=== PATIENT | male | born 1965 | race Caucasian/White ===

== ENCOUNTER 2018-08-06 09:33 | Emergency (ER) | payer BC ==
[~2018-08-06] VITALS: Ht 193 cm; Wt 112.5 kg
[2018-08-06 10:05] LABS: BASOPHILS % (AUTO) 0.5 % (0-1); EOSINOPHILS # (AUTO) 0.2 X10'3 (0-0.9); EOSINOPHILS % (AUTO) 2.3 % (0-6); HEMATOCRIT 52.6 % (42.0-52.0); LYMPHOCYTES # (AUTO) 2.7 X10'3 (1.1-4.8); LYMPHOCYTES % (AUTO) 28.2 % (21-51); MEAN CORPUSCULAR HEMOGLOBIN 28.2 PG (27.0-31.0); MEAN CORPUSCULAR HGB CONC 34.3 g/dL (33.0-36.5); MEAN CORPUSCULAR VOLUME 82.4 FL (78-98); MEAN PLATELET VOLUME 8.8 FL (7.4-10.4); MONOCYTES # (AUTO) 0.8 X10'3 (0-0.9); MONOCYTES % (AUTO) 8.4 % (2-12); NEUTROPHILS # (AUTO) 5.9 X10'3 (1.8-7.7); NEUTROPHILS % (AUTO) 60.6 % (42-75); PLATELET COUNT 226 X10'3 (140-440); RED BLOOD COUNT 6.39 X10'6 (4.70-6.10); RED CELL DISTRIBUTION WIDTH 14.3 % (11.5-14.5); WHITE BLOOD COUNT 9.7 X10'3 (4.5-11.0)
--- NOTE | 2018-08-06 10:05 | NUR ---
awaiting for ed .
[2018-08-06 10:21] LABS: PARTIAL THROMBOPLASTIN TIME 27 SECONDS (22-32); PROTHROMBIN TIME 9.9 SECONDS (9.0-12.0)
--- NOTE | 2018-08-06 10:39 | NUR ---
IN ROOM WITH OLENA LONGORIA
--- NOTE | 2018-08-06 10:40 | NUR ---
HUNG 1 LITER NS
[2018-08-06] MEDS ORDERED: adenosine 3mg/ml 2ml vial IV ONE (10:45)
[2018-08-06] MEDS ORDERED: normal saline 1000ml 1,000 ML IV ONE ×2 (10:45→11:10)
[2018-08-06 10:47] LABS: ALANINE AMINOTRANSFERASE 62 U/L (12-78); ALBUMIN 4.1 G/DL (3.4-5.0); ALBUMIN/GLOBULIN RATIO 1.1 (1.1-1.5); ALKALINE PHOSPHATASE 73 IU/L (46-116); ANION GAP 13 (8-16); ASPARTATE AMINO TRANSFERASE 31 U/L (10-37); BILIRUBIN,TOTAL 0.6 MG/DL (0.1-1.0); BLOOD UREA NITROGEN 13 MG/DL (7-18); BUN/CREATININE RATIO 11.3 (5.4-32.0); CALCIUM 9.1 MG/DL (8.5-10.1); CHLORIDE 102 MMOL/L (99-107); CREATININE 1.15 MG/DL (0.60-1.10); GLUCOSE 105 MG/DL (70-104); POTASSIUM 3.7 MMOL/L (3.5-5.1); SODIUM 138 MMOL/L (135-145); TOTAL CARBON DIOXIDE 22.9 MMOL/L (24-32); eGFR 67 ML/MIN
[2018-08-06] MEDS ORDERED: diltiazem 5mg/ml 5ml inj. IV ONE (11:50)
[2018-08-06] MEDS ORDERED: diltiazem-D5W 125mg/125ml 125 ML IV SCH (11:50)
[2018-08-06] MEDS ORDERED: iohexol 350MG/ML 100ml bottle IV ONE ×2 (11:55→12:49)
--- NOTE | 2018-08-06 12:07 | NUR ---
patient states that he drinks 2 large coffees and only a half galoon of water daily patient encouraged to switch to decaf and to increase fluid intake to a gallon of water daily
--- NOTE | 2018-08-06 12:10 | NUR ---
SPOKE WITH PA: HOLD CARDIZEM GTT FOR NOW
[2018-08-06 12:12] LABS: D-DIMER 0.31 MG/L FEU (0-0.50)
[2018-08-06 12:28] LABS: URINE AMPHETAMINE SCREEN NEGATIVE (Neg); URINE BARBITUATE SCREEN NEGATIVE (Neg); URINE BENZODIAZEPINES SCREEN NEGATIVE (Neg); URINE CANNABINOID SCREEN NEGATIVE (Neg); URINE COCAINE SCREEN NEGATIVE (Neg); URINE METHADONE SCREEN NEGATIVE (Neg); URINE OPIATE SCREEN NEGATIVE (Neg); URINE PHENCYCLIDINE SCREEN NEGATIVE (Neg)
[2018-08-06 12:30] LABS: CLARITY,URINE CLEAR (Clear); COLOR,URINE YELLOW (Yellow); GLUCOSE, URINE NEGATIVE (Neg); KETONES,URINE NEGATIVE (Neg); LEUKOCYTE ESTERASE ,URINE NEGATIVE (Neg); NITRITES, URINE NEGATIVE (Neg); OCCULT BLOOD,URINE NEGATIVE (Neg); PROTEIN,URINE NEGATIVE (Neg); UROBILINOGEN,URINE 0.2 E.U/dL (0.2-1.0)
[2018-08-06 12:35] LABS: UA COLLECTION TYPE URINAL
--- NOTE | 2018-08-06 14:20 | NUR ---
DISCUSSED PLAN OF CARE WITH OLENA AND DR BRAXTON
[2018-08-06 14:25] LABS: MAGNESIUM 2.2 MG/DL (1.5-2.4)
[2018-08-06] MEDS ORDERED: DILT30TA34 PO (15:29)
[2018-08-06 16:03] VITALS: BP 143/95
== END 2018-08-06 16:04 | disposition home or self-care (01) ==
LOC: ER 09:37
DX: I47.1 Supraventricular tachycardia (principal); Z79.899 Other long term (current) drug therapy
CPT/HCPCS: 36415; 71045; 71275; 80053; 80305; 81003; 83735; 84484; 85025; 85379; 85610; 85730; 93005; 96361; 96374; 96375; 99284; J0153; J7030; Q9967; 96376; J3490